=== PATIENT | male | born 1940 | race American Indian/Alaskan Native ===

== ENCOUNTER 2017-04-24 07:25 | Day surgery (SDC) | payer BC, MEDICARE ==
[2017-04-24] MEDS ORDERED: Bupivacaine HCl 0.25% PF (10 ml) Inj ONE (09:08)
[2017-04-24] MEDS ORDERED: MethylPREDNISolone Depo 40 mg/ml Inj ONE ×2 (09:08)
[2017-04-24] MEDS ORDERED: Iohexol 240 (50 ml) ONE (09:08)
[2017-04-24] MEDS ORDERED: Lidocaine Hydrochloride 5 ML INJ ONE (09:15)
[2017-04-24] MEDS ORDERED: Lactated Ringer's 1,000 ML IV ONE (09:20)
[2017-04-24] MEDS ORDERED: Propofol 10 mg/ml Inj (20 ML) ONE (09:21)
[2017-04-24 10:49] VITALS: RESP 14
[2017-04-24 11:02] VITALS: BP 151/81; PULSE 66; TEMP 98; O2SAT 99
--- NOTE | 2017-04-25 10:45 | RAD ---
PROCEDURE: Intraoperative Fluoroscopy. HISTORY: LUMBAR SPONDYLOSIS FINDINGS: Fluoroscopic assistance was provided for lumbar nerve block. Please
== END 2017-04-24 10:05 | disposition home or self-care (01) ==
LOC: C.OPSURG 07:25
PROVIDERS: ATTEND Anesthesiology Pain Medicine
DX: M47.896 Other spondylosis, lumbar region (principal)
CPT/HCPCS: 62323; 76000; 82948; J1030; J2704; J7120